=== PATIENT | female | born 1965 | race Caucasian/White ===

== ENCOUNTER 2018-10-12 08:52 | Emergency (ER) | payer OTHER ==
[2018-10-12] MEDS ORDERED: FENTANYL CITRATE INJ/PF 100 MCG/2 ML AMPUL IV ONE ×2 (09:26→10:35)
[2018-10-12] MEDS ORDERED: NORMAL SALINE 1000 ML 1,000 ML IV ONE (09:27)
--- NOTE | 2018-10-12 09:31 | ER Document Report ---
ED Medical Screen (RME) - General Chief Complaint: Abdominal Pain Stated Complaint: ABDOMINAL PAIN Time Seen by Provider: 10/12/18 09:15 Notes: Patient is a 53-year-old female who presents emergency department with a chief complaint of abdominal pain. Her pain starts in her upper abdomen and migrates down to below her umbilicus into the left side. The patient states that it hurts to move and she needs to splint her abdomen whenever she coughs. Describes her pain like contraction pains. Patient admits to having a fever. Her pain started about a week ago. She was put on amoxicillin for an upper respiratory infection. She has a past medical history of diverticulitis, hypothyroidism, and borderline diabetes mellitus. Patient admits to alternating between constipation and diarrhea. She has not felt nauseous nor has she vomited. Exam: Very tender mid to lower abdomen. I have greeted and performed a rapid initial assessment of this patient. A comprehensive ED assessment and evaluation of the patient, analysis of test results and completion of medical decision making process will be conducted by an additional ED providers. TRAVEL OUTSIDE OF THE [place] IN LAST 30 DAYS: No - Related Data Allergies/Adverse Reactions: Penicillins Allergy (Verified 10/12/18 08:53) Past Medical History - Social History Chew tobacco use (# tins/day): No Frequency of alcohol use: None Drug Abuse: None Renal/ Medical History: Denies: Hx Peritoneal Dialysis Physical Exam - Vital signs Vitals: Temp Pulse Resp BP Pulse Ox 98.5 F 69 20 149/90 H 99 10/12/18 08:56 10/12/18 08:56 10/12/18 08:56 10/12/18 08:56 10/12/18 08:56 Course - Vital Signs Vital signs: Temp Pulse Resp BP Pulse Ox 98.5 F 69 20 149/90 H 99 10/12/18 08:56 10/12/18 08:56 10/12/18 08:56 10/12/18 08:56 10/12/18 08:56
[2018-10-12] MEDS ORDERED: ONDANSETRON HCL INJ/PF 4 MG/2 ML SDV IV ONE (09:53)
--- NOTE | 2018-10-12 10:13 | ER Document Report ---
ED General - General Chief Complaint: Abdominal Pain Stated Complaint: ABDOMINAL PAIN Time Seen by Provider: 10/12/18 09:15 TRAVEL OUTSIDE OF THE [place] IN LAST 30 DAYS: No - HPI Notes: Patient is a 53-year-old female who presents to the emergency department for evaluation of abdominal pain. Is been ongoing for about a week. Is been progressively worse. She states that it is mostly focused in the left lower quadrant. She has a history of diverticulitis, states this feels similar. She states that for the last 3 months she is having flares of pain like this, particularly after menstruation. The symptoms last few days and then resolved. This time unfortunately the pain has lasted. She did have some associated fever, but had attributed that to an upper respiratory infection. She was seen in urgent care recently, they gave her a prescription for amoxicillin. She states that since then her abdomen is gotten significantly worse. She alternates frequently between constipation and diarrhea. She states that at this time she is having a "near normal" bowel movement, but it is of different color. No melena or hematochezia. Fevers at home this week or as high as 102. Some nausea but no emesis. No urinary symptoms. No vaginal discharge. - Related Data Allergies/Adverse Reactions: Penicillins Allergy (Verified 10/12/18 08:53) Past Medical History - General Information source: Patient - Social History Smoking Status: Never Smoker Chew tobacco use (# tins/day): No Frequency of alcohol use: None Drug Abuse: None Family History: Reviewed & Not Pertinent Patient has suicidal ideation: No Patient has homicidal ideation: No Neurological Medical History: Reports: Other - Meningioma Endocrine Medical History: Reports: Hx Diabetes Mellitus Type 2 Renal/ Medical History: Denies: Hx Peritoneal Dialysis Review of Systems - Review of Systems Constitutional: See HPI EENT: No symptoms reported Cardiovascular: No symptoms reported Respiratory: No symptoms reported Gastrointestinal: See HPI Genitourinary: No symptoms reported Musculoskeletal: No symptoms reported Skin: No symptoms reported Neurological/Psychological: No symptoms reported Physical Exam - Vital signs Vitals: Temp Pulse Resp BP Pulse Ox 98.5 F 69 20 149/90 H 99 10/12/18 08:56 10/12/18 08:56 10/12/18 08:56 10/12/18 08:56 10/12/18 08:56 - Notes Notes: Vital signs reviewed, please refer to chart. Head is normocephalic, atraumatic. Pupils equal round, reactive to light. Neck is supple without meningismus. Heart is regular rate and rhythm. Lungs are clear to auscultation bilaterally. Abdomen is soft, moderate left upper and left lower quadrant tenderness, no rebound or guarding,, normoactive bowel sounds throughout. Extremities without cyanosis, clubbing. Posterior calves are nontender. Peripheral pulses are equal. Skin is warm and dry. Patient is awake, alert, neurological exam is nonfocal. Course - Re-evaluation Re-evalutation: 10/12/18 10:12 Patient presents emergency department for evaluation. Labs are investigations, medications and ordered by [facility]. Patient initially refused pain medication, is reconsidering given her level of pain. Her nausea is feeling better after the Zofran. Labs and imaging pending, we will continue to monitor. 10/12/18 11:54 Laboratory vesication reveals diverticulitis. Patient's abdominal exam remains tender but nonsurgical. Laboratory investigations failed to reveal any significant leukocytosis. Patient was notified of her very mildly elevated potassium. I will then send her home on Cipro and Flagyl. She is tolerated this medications in the past. She is told to avoid alcohol. Given instructions for a low residue diet. She is to follow-up with her primary care provider next week, return to the ED with worsening or new concerning symptoms of any sort. - Vital Signs Vital signs: Temp Pulse Resp BP Pulse Ox 98.5 F 69 20 149/90 H 99 10/12/18 08:56 10/12/18 08:56 10/12/18 08:56 10/12/18 08:56 10/12/18 08:56 - Laboratory Result Diagrams: 10/12/18 09:48 10/12/18 09:48 Laboratory results interpreted by me: 10/12/18 09:48 Potassium 5.1 H - Diagnostic Test Radiology reviewed: Reports reviewed Radiology results interpreted by me: 10/12/18 11:55 Abdomen/Pelvis CT 10/12/18 10:08 IMPRESSION: Moderate inflammatory changes adjacent to the lower descending - sigmoid junction consistent with diverticulitis. Discharge - Discharge Clinical Impression: Sigmoid diverticulitis Condition: Stable Disposition: HOME, SELF-CARE Instructions: Low Residue Diet ([facility]), Diverticulitis ([facility]) Additional Instructions: Take antibiotics as prescribed. Follow-up with your doctor next week. If you develop fevers, vomiting, increased pain, or any other new or concerning symptoms, return immediately to the emergency department for reevaluation.
[2018-10-12 10:14] LABS: ABSOLUTE BASOPHILS # (AUTO) 0.1 10^3/uL (0.0-0.2); ABSOLUTE EOSINOPHILS # (AUTO) 0.2 10^3/uL (0.0-0.6); ABSOLUTE LYMPHOCYTES (AUTO) 1.6 10^3/uL (0.5-4.7); ABSOLUTE MONOCYTES (AUTO) 0.5 10^3/uL (0.1-1.4); ABSOLUTE NEUT (AUTO) 5.1 10^3/uL (1.7-8.2); BASOPHILS % (AUTO) 0.9 % (0-2); EOSINOPHILS % (AUTO) 2.1 % (0-6); HEMATOCRIT 37.9 % (36.0-47.0); HEMOGLOBIN 12.9 g/dL (12.0-15.5); LYMPHOCYTES % (AUTO) 21.6 % (13-45); MEAN CORPUSCULAR HGB CONC 34.1 g/dL (32.0-36.0); MEAN CORPUSCULAR VOLUME 88 fl (80-97); MONOCYTES % (AUTO) 6.8 % (3-13); PLATELET COUNT 312 10^3/uL (150-450); RED BLOOD COUNT 4.32 10^6/uL (3.72-5.28); RED CELL DISTRIBUTION WIDTH 13.2 % (11.5-14.0); SEGMENTED NEUTROPHILS % (AUTO) 68.6 % (42-78); TOTAL CELLS COUNTED % (AUTO) 100 %; WHITE BLOOD COUNT 7.4 10^3/uL (4.0-10.5)
--- NOTE | 2018-10-12 10:34 | RADIOLOGY REPORT (SQ) ---
EXAM DESCRIPTION: CT ABD/PELVIS NO ORAL OR IV COMPLETED DATE/TIME: 10/12/2018 10:23 am REASON FOR STUDY: Left sided abdominal pain COMPARISON: None. TECHNIQUE: CT scan of the abdomen and pelvis performed without intravenous or oral contrast. Images reviewed with lung, soft tissue, and bone windows. Reconstructed coronal and sagittal MPR images revi ewed. All images stored on PACS. All CT scanners at this facility use dose modulation, iterative reconstruction, and/or weight based d osing when appropriate to reduce radiation dose to as low as reasonably achievable (ALARA). [facility]: Dose Right [facility]: CareDose [facility]: Dose Right [facility]: Teradose 4D [facility]: [employer] RADIATION DOSE: CT Rad equipment meets quality standard of care and radiation dose reduction techniq ues were employed. CTDIvol: 14.1 mGy. DLP: 752 mGy-cm.mGy. LIMITATIONS: None. FINDINGS: LOWER CHEST: No significant findings. No nodules or infiltrates. NON-CONTRASTED LIVER, SPLEEN, ADRENALS: Evaluation limited by lack of IV contrast. No identified sign ificant masses. PANCREAS: No masses. No peripancreatic inflammatory changes. GALLBLADDER: No calcified stones. No inflammatory changes to suggest cholecystitis. RIGHT KIDNEY AND URETER: No cysts identified. No solid masses. No calcified stones. No hydronephrosis or hydroureter. LEFT KIDNEY AND URETER: No cysts identified. No solid masses. No calcified stones. No hydronephrosis or hydroureter. AORTA AND RETROPERITONEUM: No aneurysm. No retroperitoneal masses or adenopathy. BOWEL AND PERITONEAL CAVITY: Moderate inflammatory changes adjacent to the lower descending -sigmoid junction consistent with diverticulitis. No fluid collection. APPENDIX: Normal. PELVIS, BLADDER, AND ABDOMINAL WALL:No abnormal masses. No free fluid. Unremarkable bladder. BONES: No acute findings. OTHER: No other significant finding. IMPRESSION: Moderate inflammatory changes adjacent to the lower descending -sigmoid junction consist ent with diverticulitis. TECHNICAL DOCUMENTATION: JOB ID: [id number] Quality ID # [id number]: Final reports with documentation of one or more dose reduction techniques (e.g., Au tomated exposure control, adjustment of the mA and/or kV according to patient size, use of iterative reconstruction technique) 2010 [employer]- All Rights Reserved Reading location - IP/workstation name: [email or web address]
[2018-10-12 10:41] LABS: ALBUMIN 4.6 g/dL (3.5-5.0); ALKALINE PHOSPHATASE 74 U/L (38-126); ANION GAP 9 (5-19); ASPARTATE AMINO TRANSFERASE 31 U/L (14-36); BILIRUBIN,DIRECT 0.4 mg/dL (0.0-0.4); BILIRUBIN,TOTAL 0.7 mg/dL (0.2-1.3); BLOOD UREA NITROGEN 13 mg/dL (7-20); CALCIUM 9.9 mg/dL (8.4-10.2); CARBON DIOXIDE 30 mmol/L (22-30); CHLORIDE 101 mmol/L (98-107); GLUCOSE 108 mg/dL (75-110); POTASSIUM 5.1 mmol/L (3.6-5.0); TOTAL PROTEIN 8.1 g/dL (6.3-8.2)
[2018-10-12 10:52] LABS: APPEARANCE,URINE CLEAR; BILIRUBIN,URINE NEGATIVE (NEGATIVE); COLOR,URINE YELLOW; GLUCOSE, URINE NEGATIVE (NEGATIVE); KETONES,URINE NEGATIVE (NEGATIVE); LEUKOCYTE ESTERASE,URINE NEGATIVE (NEGATIVE); NITRITE,URINE NEGATIVE (NEGATIVE); PROTEIN,URINE NEGATIVE (NEGATIVE); URINE SPECIFIC GRAVITY 1.018; UROBILINOGEN,URINE NEGATIVE mg/dL (<2.0)
[2018-10-12 12:15] VITALS: BP 134/86
== END 2018-10-12 12:17 | disposition home or self-care (01) ==
LOC: ER 08:52
DX: K57.32 Diverticulitis of large intestine without perforation or abscess without bleeding (principal); R10.9 Unspecified abdominal pain; E11.9 Type 2 diabetes mellitus without complications; Z88.0 Allergy status to penicillin
CPT/HCPCS: 99284; 96361; 96374; 96375; 36415; 83690; 84703; 85025; 80053; 81001; 74176; J3010; J2405; J7030